=== PATIENT | female | born 1965 | race Caucasian/White ===

== ENCOUNTER 2019-04-21 08:42 | Emergency (ER) | payer OTHER ==
[~2019-04-21] VITALS: Ht 162.6 cm; Wt 87.7 kg
[2019-04-21 08:50] VITALS: BP 130/83
[2019-04-21] MEDS ORDERED: PLAQUENIL 200M200 MG PO (09:15)
[2019-04-21] MEDS ORDERED: FLEXERIL5 MG PO (09:16)
[2019-04-21] MEDS ORDERED: AMITRIPTYLINE H25 M1 PO (09:18)
[2019-04-21] MEDS ORDERED: TOPAMAX50 MG PO (09:19)
[2019-04-21] MEDS ORDERED: ZOFRAN8 MG PO (09:19)
[2019-04-21] MEDS ORDERED: WELLBUTRIN XL300 M1 PO (09:20)
[2019-04-21] MEDS ORDERED: ESTRACE 1MG1 MG/TAB PO (09:21)
[2019-04-21] MEDS ORDERED: ADIPEX-P37.5 MG PO (09:22)
[2019-04-21] MEDS ORDERED: CYMBALTA 60MG60 MG PO (09:23)
[2019-04-21] MEDS ORDERED: MAXALT10 MG PO (09:24)
[2019-04-21] MEDS ORDERED: FIORICET 325 MG1 TA1 PO (09:25)
[2019-04-21] MEDS ORDERED: VALTREX1 GM PO (09:29)
[2019-04-21 09:45] VITALS: PULSE 92; TEMP 97.6
== END 2019-04-21 09:45 | disposition home or self-care (01) ==
LOC: COL.ER 08:42
DX: B00.1 Herpesviral vesicular dermatitis (principal); F12.90 Cannabis use, unspecified, uncomplicated; H93.3X2 Disorders of left acoustic nerve; F32.9 Major depressive disorder, single episode, unspecified; F41.9 Anxiety disorder, unspecified; G43.909 Migraine, unspecified, not intractable, without status migrainosus; D89.9 Disorder involving the immune mechanism, unspecified